=== PATIENT | male | born 1950 | race Caucasian/White ===

== ENCOUNTER 2018-09-30 15:25 | Emergency (ER) | payer OTHER ==
[~2018-09-30] VITALS: Ht 154.9 cm; Wt 72.1 kg
[2018-09-30 15:45] VITALS: Ht 154.9 cm; Wt 72.1 kg
[2018-09-30 18:07] VITALS: BP 131/71
== END 2018-09-30 18:07 | disposition home or self-care (01) ==
LOC: ED 15:25
DX: M25.561 Pain in right knee (principal); M79.651 Pain in right thigh
CPT/HCPCS: J1885; Q0092